=== PATIENT | female | born 1985 | race Caucasian/White ===

== ENCOUNTER 2020-02-13 11:58 | Inpatient (IN) ==
[2020-02-13] MEDS ORDERED: LACTATED RINGER'S 1,000 ML IV PRN (17:35)
[2020-02-13] MEDS ORDERED: OXYTOCIN 30 UNITS/500 ML BAG IV PRN ×3 (17:35→23:56)
[2020-02-13 17:58] LABS: Hematocrit (blood only) 37.4 % (37-47); Mean Corpuscular Hemoglobin 29.5 pg (25-34); Mean Corpuscular Volume 84.8 fL (80-100); Mean Platelet Volume 11.1 fL (7.4-10.4); Platelet Count 135 K/uL (130-400); RDW Coefficient of Variation 13.1 % (11.5-14.5); RDW Standard Deviation 40.1 fL (36.4-46.3); Red Blood Count 4.41 M/uL (4.2-5.4); White Blood Count 16.65 K/uL (4.8-10.8)
[2020-02-13] MEDS ORDERED: ePHEDrine sulfate 50 MG/ML AMP ONE (18:03)
[2020-02-13] MEDS ORDERED: BUPIVACAINE 0.25% 30 ML VIAL ONE (18:03)
[2020-02-13] MEDS ORDERED: fentaNYL citrate 100 MCG/2 ML VIAL ONE (18:04)
[2020-02-13] MEDS ORDERED: fentaNYL 2MCG/ML ROPIV 1.25MG/ML 100 ML BAG EPI ONE (18:05)
[2020-02-13 18:14] LABS: Mean Corpuscular Hgb Conc 34.8 g/dL (32-36)
--- NOTE | 2020-02-13 18:16 | History & Physical Report ---
Date of Service February 13, 2020 Assessment & Plan (1) : Patient epidural follow closely History of Present Illness Primary Care Provider: NO PCP Patient has presented with contractions and these were initially less than 5 minutes apart 1 hour 16 minutes her cervix was initially 1 cm but now has progressed to 5 cm thus we will admit her for labor patient requests epidural Allergies Allergy/AdvReac Type Severity Reaction Status Date / Time No Known Allergies Allergy Verified 02/07/20 12:19 Home Medications Home Medications Medication Instructions Recorded Confirmed Type prenat.vits,nely,krc-fjnk-rbgrq 1 tab PO DAILY 07/03/19 02/07/20 History valacyclovir 500 mg tablet 500 mg PO DAILY #30 tab 12/20/19 02/07/20 Rx docosahexaenoic acid PO 01/03/20 02/07/20 History cephalexin 250 mg capsule 250 mg PO QID #20 cap 01/22/20 02/07/20 Rx Patient History Social History marital status: Single marital status details: FOB: Bipin Estrada (37) [phone] Current Living Situation: Family Current Living Situation Comment: lives with FOB, 2 dogs current occupational status: employed current occupation: Health Program Manager[employer] Smoking Status: Never smoker Hx Alcohol Use: No Hx Substance Use: No Physical Exam Constitutional: WD/WN, vitals as above Respiratory: normal respiratory effort, lungs clear to auscultation Cardiovascular: RRR, no murmur, no edema Genitourinary: Manual OB Exam: + cervical dilation 5 cm, + cervical effacement 80% and + station 0 Results & Data ([facility]) Vital Signs (Past 12 Hours) Vital Signs Temp Pulse Resp BP 02/13/20 17:58 75 127/75 02/13/20 12:53 98.1 F 84 18 121/79 02/13/20 12:12 84 121/79 Coding Level of Care Code None Diagnoses Z34.90
--- NOTE | 2020-02-13 18:24 | Anesthesiology Consultation ---
Date of Service February 13, 2020 Assessment & Plan (1) Encounter for pre-operative examination: Chart Review Chart Review: Patient NOT seen in Pre Admission Testing and Acceptable Risk for Labor Epidural Consults Requested none ASA ASA2 Proposed Anesthesia Anesthesia Type: Labor Epidural Risk / Benefits Reviewed With: PT / POA / Parent / Guardian, Accepts Plan and Informed Consent Obtained History Height/Weight Height: 5 ft 3 in Weight: 59.874 kg Allergies Allergy/AdvReac Type Severity Reaction Status Date / Time No Known Allergies Allergy Verified 02/07/20 12:19 Medications Home Medications Medication Instructions Recorded Confirmed Last Taken prenat.vits,nely,xnf-vlxn-jflhg 1 tab PO DAILY 07/03/19 02/07/20 Unknown valacyclovir 500 mg tablet 500 mg PO DAILY #30 tab 12/20/19 02/07/20 Unknown docosahexaenoic acid PO 01/03/20 02/07/20 Unknown cephalexin 250 mg capsule 250 mg PO QID #20 cap 01/22/20 02/07/20 Unknown NPO Date Last Intake of Fluids: 02/13/20 Time Last Intake of Fluids: 18:22 Date Last Intake of Solids: 02/13/20 Time Last Intake of Solids: 11:00 Past Medical History Medical History Abnormal Pap smear of cervix Bladder infection Encounter for anatomic survey 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 Patient denies active use of anticoagulants other than low dose aspirin. Patient denies numbness, tingling or weakness in lower extremities. Physical Exam Vital Signs Last Vital Signs Temp 36.7 C 02/13/20 12:53 Pulse 75 02/13/20 17:58 Resp 18 02/13/20 12:53 BP 127/75 02/13/20 17:58 Constitutional not obese (Gravid) ENMT Mouth: no TMJ abnormality and oral opening not small Thyromental Distance: > or= 3.5 Finger Breadths Mallampati Class: I Neck normal visual inspection; neck extension not limited Respiratory normal respiratory effort Auscultation: lungs clear to auscultation bilaterally Cardiovascular Rate/Rhythm: regular rate and regular rhythm Heart Sounds: no murmur Neurologic moves all extremities Psychiatric Orientation: alert and oriented x 3 Testing Laboratory Results 02/13/20 17:44
[2020-02-13] MEDS ORDERED: fentaNYL 2MCG/ML ROPIV 1.25MG/ML 100 ML BAG EPI PRN (18:49)
[2020-02-13] MEDS ORDERED: NALOXONE HCL 1 MG in SODIUM CHLORIDE 0.9% 1000ML 1,000 ML IV PRN (18:49)
[2020-02-13] MEDS ORDERED: ePHEDrine sulfate 50 MG/ML AMP IV PRN (18:49)
[2020-02-13] MEDS ORDERED: NALOXONE HCL 0.4 MG/1 ML VIAL/CARP IV PRN (18:49)
[2020-02-13] MEDS ORDERED: DiphenhydrAMINE HCL 50 MG/ML VIAL IV PRN (18:49)
[2020-02-13] MEDS ORDERED: ONDANSETRON INJ 2 MG/ML 2 ML VIAL IV PRN (18:49)
--- NOTE | 2020-02-13 19:36 | Labor Progress Brief Note ---
Date of Service February 13, 2020 Patient now 7 cm has epidural artificial rupture of membranes for clear fluid contractions of space will consider Pitocin if they stay spaced estimated weight 7 pounds Assessment & Plan Admission and Anticipated Discharge Date Admission Date: February 13, 2020 Results & Data ([facility]) Vital Signs (Past 12 Hours) Vital Signs Temp Pulse Resp BP Pulse Ox 02/13/20 19:34 99 H 98 02/13/20 19:29 83 98 02/13/20 19:24 93 H 98 02/13/20 19:21 80 108/59 L 02/13/20 19:19 104 H 98 02/13/20 19:16 81 109/56 L 02/13/20 19:14 78 97 02/13/20 19:11 97 H 115/65 02/13/20 19:09 93 H 98 02/13/20 19:06 86 117/68 02/13/20 19:04 92 H 98 02/13/20 19:01 103 H 119/67 02/13/20 18:59 101 H 116/67 99 02/13/20 18:57 91 H 113/65 02/13/20 18:55 93 H 116/65 02/13/20 18:54 109 H 98 02/13/20 18:53 107 H 118/66 02/13/20 18:51 96 H 110/59 L 02/13/20 18:49 91 H 107/56 L 98 02/13/20 18:47 84 108/59 L 02/13/20 18:45 82 118/62 02/13/20 18:44 103 H 100 02/13/20 18:43 104 H 122/84 02/13/20 18:41 88 121/76 02/13/20 18:38 76 97 02/13/20 17:58 75 127/75 02/13/20 12:53 98.1 F 84 18 121/79 02/13/20 12:12 84 121/79 Coding Level of Care Code None
--- NOTE | 2020-02-13 23:24 | Delivery Summary ---
Vaginal Delivery Summary Date of Service February 13, 2020 Vaginal Delivery Summary Patient presented to labor and delivery with spontaneous labor received an epidural artificial rupture membranes with revealed clear fluid Pitocin was started due to contractions spacing she delivered by pushing over a small first- degree tear baby was in occiput anterior position mouth and then nares were suctioned there was no nuchal cord. Baby was delivered with gentle traction no excessive force used live vigorous infant cord clamped and cut cord gases obtained cord blood obtained small first-degree tear repaired with 3-0 Vicryl placenta was removed with gentle traction IV Pitocin started estimated blood loss 150 mL sponge and instrument counts correct
[2020-02-13] MEDS ORDERED: SUPERCREAM 0.870% 15 GM JAR EXT PRN (23:56)
[2020-02-13] MEDS ORDERED: ACETAMINOPHEN 325 MG TAB PO PRN (23:56)
[2020-02-13] MEDS ORDERED: OXYCODONE/ACETAMINOPHEN 5mg/325mg TAB PO PRN (23:56)
[2020-02-13] MEDS ORDERED: HYDROCORTISONE ACETATE 25 MG SUPP PR PRN (23:56)
[2020-02-13] MEDS ORDERED: DIPHTHERIA/TETANUS/PERTUSSIS 0.5 ML SYR/VIAL IM ONE (23:56)
[2020-02-13] MEDS ORDERED: bisacodyL 10 MG SUPP PR PRN (23:56)
[2020-02-13] MEDS ORDERED: BENZOCAINE 20% AER SPR 82.5 GM CAN EXT PRN (23:56)
[2020-02-14] MEDS: IBUPROFEN 600 MG TAB PO PRN ×3 (01:36→23:31)
--- NOTE | 2020-02-14 01:44 | Anesthesia Procedure Note ---
Date of Service February 14, 2020 Anesthesia Post Epidural Note Vital Signs Vital Signs: Temp Pulse Resp BP Pulse Ox 37.2 C 80 18 123/67 97 02/14/20 00:53 02/14/20 01:38 02/14/20 00:53 02/14/20 01:38 02/13/20 23:19 Pain Intensity Bilateral Abdomen: Pain Intensity: 1 Notes Mental Status: alert / awake / arousable and participated in evaluation Nausea / Vomiting: adequately controlled Pain: adequately controlled Airway Patency, RR, SpO2: stable & adequate BP & HR: stable & adequate Hydration State: stable & adequate Neuraxial Anesthesia: was administered and sensory block is resolving Anesthetic Complications: no major complications apparent and Pt Satisfied with anesthetic care Epidural: Removed without complications and With tip intact Notes: Epidural site clean, dry and intact. No signs of edema, erythema or bruising at insertion site. Pt instructed to request anesthesia if she has residual lower extremity numbness or if she develops lower extremity pain or weakness, back pain or headache.
[2020-02-14] MEDS ORDERED: BENZOCAINE 20% AER SPR 82.5 GM CAN EXT ONE (02:06)
[2020-02-14 06:03] LABS: Hematocrit (blood only) 32.7 % (37-47); Hemoglobin 11.1 g/dL (12.0-16.0); Mean Corpuscular Hemoglobin 29.1 pg (25-34); Mean Corpuscular Hgb Conc 33.9 g/dL (32-36); Mean Corpuscular Volume 85.8 fL (80-100); Mean Platelet Volume 11.6 fL (7.4-10.4); Platelet Count 151 K/uL (130-400); RDW Coefficient of Variation 13.3 % (11.5-14.5); RDW Standard Deviation 41.4 fL (36.4-46.3); Red Blood Count 3.81 M/uL (4.2-5.4)
--- NOTE | 2020-02-14 06:23 | Obstetrical Progress Note ---
Date of Service <Melvin Lazaro MD - Last Filed: 02/14/20 07:19> February 14, 2020 Assessment & Plan <Melvin Lazaro MD - Last Filed: 02/14/20 07:19> (1) : PPD#1 Doing well, voiding well, tolerating oral intake. Ambulate as tolerated. Continue routine care. After discharge will have follow-up in 6 weeks. Subjective <Melvin Lazaro MD - Last Filed: 02/14/20 07:19> Jamila is a 34 y/o female ; PPD #1 following spontaneous vaginal delivery at 38+ weeks; doing well this morning; light abdominal cramping& 3/10 pain well managed on analgesics; voiding well; tolerating meals overnight; some persistent spotting with improvement this morning. She has not yet been able to ambulate, as the epidural was just wearing off as of this morning. Review of Systems Constitutional: denies fever, chills, sweat, headache Respiratory: denies shortness of breath, difficulty breathing Cardiac: denies chest pain, palpitations, chest pressure Breast: denies breast pain : denies dysuria Physical Exam <Melvin Lazaro MD - Last Filed: 02/14/20 07:19> General: Alert, oriented. No acute distress. Cardiac: Regular rate and rhythm, no murmurs/rubs/gallops. Respiratory: Clear to auscultation bilaterally a/p, no wheezes/rales/rhonchi. No increased work of breathing. Symmetrical chest rise. No respiratory distress. Abdomen: Soft, nontender, nondistended. Bowel sounds present. Uterus: Uterine fundus firm, palpable 1cm below umbilicus. Lower Extremities: No lower extremity edema or swelling. No deep calf pain. Lit's negative bilaterally. Results & Data <Melvin Lazaro MD - Last Filed: 02/14/20 07:19> Vital Signs (Past 12 Hours) Vital Signs Temp Pulse Pulse Resp BP BP Pulse Ox 02/14/20 02:50 36.7 C 81 18 103/65 97 02/14/20 02:15 37.1 C 18 02/14/20 01:53 87 116/66 02/14/20 01:38 80 123/67 02/14/20 01:23 90 18 117/61 02/14/20 01:08 93 H 111/61 02/14/20 00:53 37.2 C 78 18 118/69 02/14/20 00:38 87 115/67 02/14/20 00:23 37.1 C 77 18 115/66 02/14/20 00:08 86 18 111/65 02/13/20 23:53 86 18 112/65 02/13/20 23:38 78 16 110/65 02/13/20 23:23 37.0 C 90 18 114/69 02/13/20 23:19 88 97 02/13/20 23:14 114 H 97 02/13/20 23:09 108 H 96 02/13/20 23:04 102 H 96 02/13/20 22:59 94 H 97 02/13/20 22:54 104 H 96 02/13/20 22:49 95 H 97 02/13/20 22:44 110 H 97 02/13/20 22:41 88 91 02/13/20 22:40 93 H 119/76 02/13/20 22:39 113 H 99 02/13/20 22:34 97 H 98 02/13/20 22:29 105 H 98 02/13/20 22:28 97 H 93 02/13/20 22:24 97 H 97 02/13/20 22:22 98 H 82 L 02/13/20 22:19 119 H 95 02/13/20 22:17 88 125/59 L 02/13/20 22:16 96 H 92 02/13/20 22:14 105 H 97 02/13/20 22:09 116 H 98 02/13/20 22:04 119 H 96 02/13/20 22:02 117 H 89 L 02/13/20 21:59 115 H 99 02/13/20 21:56 117 H 80 L 02/13/20 21:54 114 H 100 02/13/20 21:50 102 H 90 02/13/20 21:49 111 H 100 02/13/20 21:44 117 H 91 02/13/20 21:39 88 100 02/13/20 21:34 97 H 100 02/13/20 21:29 69 100 07/15/20 21:24 71 109/61 100 07/15/20 21:19 83 100 02/13/20 21:14 75 100 02/13/20 21:09 75 104/62 100 02/13/20 21:04 82 99 02/13/20 21:00 37.0 C 18 02/13/20 20:59 71 100 02/13/20 20:55 71 99/58 L 02/13/20 20:54 72 100 02/13/20 20:49 88 100 02/13/20 20:44 78 99 02/13/20 20:41 75 118/73 02/13/20 20:39 124 H 99 02/13/20 20:34 81 99 02/13/20 20:29 74 99 02/13/20 20:24 71 112/72 98 02/13/20 20:19 72 99 02/13/20 20:14 71 98 02/13/20 20:09 111 H 109/70 97 02/13/20 20:04 85 98 02/13/20 20:01 18 02/13/20 19:59 125 H 98 02/13/20 19:54 98 H 115/73 97 02/13/20 19:49 95 H 97 02/13/20 19:44 101 H 98 02/13/20 19:40 77 112/71 02/13/20 19:39 90 98 02/13/20 19:34 99 H 98 02/13/20 19:29 83 98 02/13/20 19:24 93 H 98 02/13/20 19:21 80 108/59 L 02/13/20 19:19 104 H 98 02/13/20 19:16 81 109/56 L 02/13/20 19:14 78 97 02/13/20 19:11 97 H 115/65 02/13/20 19:09 93 H 98 02/13/20 19:06 86 117/68 02/13/20 19:05 37.1 C 16 02/13/20 19:04 92 H 98 02/13/20 19:01 103 H 119/67 02/13/20 18:59 101 H 116/67 99 02/13/20 18:57 91 H 113/65 02/13/20 18:55 93 H 116/65 02/13/20 18:54 109 H 98 02/13/20 18:53 107 H 118/66 02/13/20 18:51 96 H 110/59 L 02/13/20 18:49 91 H 107/56 L 98 02/13/20 18:47 84 108/59 L 02/13/20 18:45 82 118/62 02/13/20 18:44 103 H 100 02/13/20 18:43 104 H 122/84 02/13/20 18:41 88 121/76 02/13/20 18:38 76 97 <Liam Troy MD, FACOG - Last Filed: 02/14/20 07:50> Co-Signing Physician Notes Resident Physician Supervision Note: I was present with Dr. Charles during the history and exam. I discussed the case with the resident and agree with the findings and plan as documented in the note. Any exceptions or clarifications are listed here: [None] Documented By: Liam Troy MD, FACOG Resident Activity Tracking <Melvin Lazaro MD - Last Filed: 02/14/20 07:19> Resident Involvement: Resident Care Provided Care Provided: OB Delivery
[2020-02-14] MEDS: PRENATAL VITAMIN 1 TAB PO SCH (08:34)
[2020-02-14] MEDS: DOCUSATE SODIUM 100 MG CAP PO SCH ×2 (08:34→19:27)
[2020-02-14] MEDS ORDERED: bisacodyL 5 MG TABEC PO SCH (20:00)
[2020-02-15] MEDS: IBUPROFEN 600 MG TAB PO PRN ×2 (05:22→10:12)
[2020-02-15 06:04] LABS: Hematocrit (blood only) 33.4 % (37-47); Hemoglobin 10.9 g/dL (12.0-16.0)
--- NOTE | 2020-02-15 06:29 | Obstetrical Progress Note ---
Date of Service <Melvin Lazaro MD - Last Filed: 02/15/20 06:29> February 15, 2020 Assessment & Plan <Melvin Lazaro MD - Last Filed: 02/15/20 06:29> (1) : PPD#2 Doing well, voiding well, tolerating oral intake. Ambulate as tolerated. Continue routine care. After discharge will have follow-up in 6 weeks. Subjective <Melvin Lazaro MD - Last Filed: 02/15/20 06:29> Jamila is a 34 y/o female ; PPD #2 following spontaneous vaginal delivery at 38+ weeks; doing well this morning; light abdominal cramping & 2/10 pain well managed on analgesics; voiding well; tolerating meals overnight and able to ambulate some; some persistent spotting with some improvement this morning. Review of Systems Constitutional: denies fever, chills, sweat, headache Respiratory: denies shortness of breath, difficulty breathing Cardiac: denies chest pain, palpitations, chest pressure Breast: denies breast pain : denies dysuria Physical Exam <Melvin Lazaro MD - Last Filed: 02/15/20 06:29> General: Alert, oriented. No acute distress. Cardiac: Regular rate and rhythm, no murmurs/rubs/gallops. Respiratory: Clear to auscultation bilaterally a/p, no wheezes/rales/rhonchi. No increased work of breathing. Symmetrical chest rise. No respiratory distress. Abdomen: Soft, nontender, nondistended. Bowel sounds present. Uterus: Uterine fundus firm, palpable 2cm below umbilicus. Lower Extremities: No lower extremity edema or swelling. No deep calf pain. Lit's negative bilaterally. Results & Data <Melvin Lazaro MD - Last Filed: 02/15/20 06:29> Vital Signs (Past 12 Hours) Vital Signs Temp Pulse Resp BP Pulse Ox 02/14/20 23:25 36.9 C 80 18 108/70 02/14/20 19:25 36.9 C 94 H 18 109/73 97 <Soledad Evans MD, FACOG - Last Filed: 02/15/20 09:35> Co-Signing Physician Notes Resident Physician Supervision Note: I interviewed and examined the patient. Discussed with Dr. Miller and agree with findings and plan as documented in the note. Any exceptions or clarifications are listed here: [None] Documented By: Soledad Evans MD, FACOG Resident Activity Tracking <Melvin Lazaro MD - Last Filed: 02/15/20 06:29> Resident Involvement: Resident Care Provided Care Provided: OB Delivery
[2020-02-15] MEDS: DOCUSATE SODIUM 100 MG CAP PO SCH (08:22)
[2020-02-15] MEDS: PRENATAL VITAMIN 1 TAB PO SCH (08:22)
== END 2020-02-15 11:24 | disposition home or self-care (01) | DRG 807 ==
LOC: OPB 11:58 → 4S1 12:00 → 4S2 02-14 02:20

== ENCOUNTER 2022-02-12 22:50 | Inpatient (IN) ==
[2022-02-12] MEDS ORDERED: OXYTOCIN 30 UNITS/500 ML BAG IV PRN (22:57)
[2022-02-12] MEDS ORDERED: ePHEDrine sulfate 50 MG/ML AMP ONE (23:13)
[2022-02-12] MEDS ORDERED: LIDOCAINE 2%/EPINEPHRINE 1:200,000 20 ML SDV ONE (23:14)
[2022-02-12] MEDS ORDERED: fentaNYL 2MCG/ML ROPIVACAINE 1.25MG/ML 100 ML BAG EPI ONE (23:14)
[2022-02-12] MEDS ORDERED: BUPIVACAINE 0.25% 30 ML VIAL ONE (23:14)
[2022-02-12] MEDS ORDERED: fentaNYL citrate 100 MCG/2 ML VIAL ONE (23:14)
[2022-02-12] MEDS ORDERED: SODIUM CHLORIDE 0.9% INJ 10 ML VIAL ONE (23:14)
[2022-02-12] MEDS: LACTATED RINGER'S 1,000 ML IV PRN (23:15)
[2022-02-12] MEDS ORDERED: diphenhydrAMINE 50 MG/ML VIAL IV PRN (23:43)
[2022-02-12] MEDS ORDERED: ONDANSETRON INJ 2 MG/ML 2 ML VIAL IV PRN (23:43)
[2022-02-12] MEDS ORDERED: NALOXONE HCL 0.4 MG/1 ML VIAL/CARP IV PRN (23:43)
[2022-02-12] MEDS ORDERED: ePHEDrine sulfate 50 MG/ML AMP IV PRN (23:43)
[2022-02-12] MEDS ORDERED: NALOXONE HCL 1 MG in SODIUM CHLORIDE 0.9% 1000ML 1,000 ML IV PRN (23:43)
[2022-02-12] MEDS ORDERED: fentaNYL 2MCG/ML ROPIVACAINE 1.25MG/ML 100 ML BAG EPI PRN (23:43)
[2022-02-12] MEDS ORDERED: NALBUPHINE HCL INJ 10 MG/ML AMP IV PRN (23:43)
--- NOTE | 2022-02-12 23:47 | Anesthesiology Consultation ---
Date of Service February 12, 2022 Assessment & Plan Chart Review Chart Review: Patient NOT seen in Pre Admission Testing and Acceptable Risk for Labor Epidural Consults Requested none ASA ASA2 Proposed Anesthesia Anesthesia Type: Labor Epidural and CSE Risk / Benefits Reviewed With: PT / POA / Parent / Guardian, Accepts Plan and Informed Consent Obtained History Height/Weight Height: 5 ft 3 in Weight: 58.967 kg Allergies Allergy/AdvReac Type Severity Reaction Status Date / Time No Known Allergies Allergy Verified 02/09/22 09:16 Medications Home Medications Medication Instructions Recorded Confirmed Last Taken acetone (urine) test (Ketone Urine #50 ea 09/25/21 02/09/22 Unknown Test) blood sugar diagnostic (OneTouch #150 ea 09/25/21 02/09/22 Unknown Verio test strips) blood-glucose meter (OneTouch #1 ea 09/25/21 02/09/22 Unknown Verio Flex meter) lancets 33 gauge (OneTouch Delica #150 ea 09/25/21 02/09/22 Unknown Plus Lancet) valacyclovir 500 mg tablet 500 mg PO DAILY #30 tabs 02/03/22 02/12/22 02/12/22 07:00 vit no.95-ferrous 1 tab PO DAILY 02/12/22 02/12/22 02/12/22 fumarate 28 mg-folic acid 800 mcg tablet () NPO Date Last Intake of Fluids: 02/12/22 Time Last Intake of Fluids: 22:00 Date Last Intake of Solids: 02/12/22 Time Last Intake of Solids: 12:00 Past Medical History Medical History Bladder infection 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 Exercise / Class Metabolic Activity II 4-5 Yardwork/Stairs/Walk up hill Past Family History Family History Father Diabetes Mother Multiple kidney stones Denies family history of Ovarian cancer Breast cancer Colorectal cancer Past Surgical History Surgical History [place] teeth removed Past Anesthesia History No Hx of Anesthesia Complications and No Family Hx of Anesthesia Complications History of PONV No Hx of PONV and No Hx of Motion Sickness Social History Smoking Status: Never smoker Hx Alcohol Use: No Hx Substance Use: No substance use type: does not use Review of Systems no chest pain or sob Physical Exam Vital Signs Last Vital Signs Temp 37.0 C 02/12/22 23:03 Pulse 83 02/12/22 23:43 Resp 18 02/12/22 23:03 BP 110/68 02/12/22 22:59 Pulse Ox 97 02/12/22 23:43 ENMT Mouth: no TMJ abnormality Thyromental Distance: > or= 3.5 Finger Breadths Mallampati Class: II Neck normal visual inspection Respiratory normal respiratory effort Auscultation: lungs clear to auscultation bilaterally Cardiovascular Rate/Rhythm: regular rate and regular rhythm Musculoskeletal Spine: normal cervical ROM Neurologic moves all extremities Psychiatric Orientation: alert and oriented x 3 Testing Laboratory Results 02/12/22 23:24 POC Glucose 108 H
[2022-02-13 00:09] LABS: Hematocrit (blood only) 37.3 % (34.1-44.9); Hemoglobin 12.8 g/dl (12.0-16.0); Mean Corpuscular Hemoglobin 29.2 pg (25.0-34.0); Mean Corpuscular Hgb Conc 34.3 g/dL (32.0-36.0); Mean Platelet Volume 11.7 fL (9.4-12.3); Platelet Count 130 K/uL (130-400); RDW Coefficient of Variation 12.8 % (11.5-14.5); RDW Standard Deviation 39.1 fL (36.4-46.3); Red Blood Count 4.39 M/uL (3.93-5.22)
[2022-02-13 00:10] LABS: Platelet Estimate Normal (Normal)
[2022-02-13] MEDS: LACTATED RINGER'S 1,000 ML IV PRN (00:35)
[2022-02-13] MEDS ORDERED: ACETAMINOPHEN 325 MG TAB PO PRN (01:27)
[2022-02-13] MEDS ORDERED: OXYTOCIN 30 UNITS/500 ML BAG IV PRN (01:27)
[2022-02-13] MEDS ORDERED: BENZOCAINE 20% AER SPR 82.5 GM CAN EXT PRN (01:27)
[2022-02-13] MEDS ORDERED: oxyCODONE/ACETAMINOPHEN 5mg/325mg TAB PO PRN (01:27)
[2022-02-13] MEDS ORDERED: HYDROCORTISONE ACETATE 25 MG SUPP PR PRN (01:27)
[2022-02-13] MEDS ORDERED: DIPHTHERIA/TETANUS/PERTUSSIS 0.5 ML SYR/VIAL IM ONE (01:27)
--- NOTE | 2022-02-13 01:31 | Delivery Summary ---
Vaginal Delivery Summary Date of Service February 13, 2022 Vaginal Delivery Summary and 1st Degree LAC Patient is a 36-year-old 2 para 1-0-0-1 female EDC of [birth year]/2022 presented in active labor. She requested epidural analgesia which was effective when she was 8 cm dilated. Membranes were ruptured for small amount of clear fluid. She progressed to full dilation and pushed effectively over intact perineum for delivery of a viable female infant in direct OP presentation. The rest of the delivered easily and she was placed on the mother's abdomen for further attention and drying. She was vigorous and moving all 4 limbs. Cord was clamped shortly after because of a short umbilical cord length. After cord blood was obtained the placenta was expressed intact with a three-vessel cord. bleeding was controlled with dilute Pitocin. A small first-d egree laceration at the vagina was bleeding and therefore repaired with a [id number] stitch of 3-0 chromic. Estimated blood loss was 300 cc. Mother and infant were doing well after delivery. [facility] [place] Vaginal Delivery Charge Delivery Type Details: and 1st Degree LAC
--- NOTE | 2022-02-13 08:43 | Obstetrical Progress Note ---
Date of Service February 13, 2022 Assessment & Plan (1) Encounter for care and examination after delivery: satisfactory progress continue current care plan Subjective Ambulation: ambulating normally Voiding: no voiding problems Passing Gas:: Yes Diet Tolerance:: regular diet Lochia:: Small Feeding Type:: breast feeding Review of Systems All systems reviewed & are unremarkable except as noted in HPI & below Physical Exam Constitutional WD/WN, vitals as above Psychiatric A+Ox3, euthymic affect Genitourinary OB Exam Abdomen: + fundal height Fundus: + firm and + relation to umbilicus (at U) Results & Data ([facility]) Vital Signs (Past 12 Hours) Vital Signs Temp Pulse Pulse Resp BP BP Pulse Ox 02/13/22 04:22 98.1 F 66 18 99/68 L 02/13/22 03:18 97.7 F 18 02/13/22 02:18 18 02/13/22 02:05 18 02/13/22 01:49 18 02/13/22 01:33 16 02/13/22 01:19 98.2 F 18 02/13/22 03:18 86 92/50 L 02/13/22 03:03 86 94/50 L 02/13/22 02:48 78 103/58 L 02/13/22 02:33 85 101/61 02/13/22 02:18 102 H 108/59 L 02/13/22 00:15 18 02/13/22 00:15 18 02/13/22 00:30 02/13/22 00:30 02/13/22 00:45 18 02/13/22 00:45 99.0 F 18 02/13/22 02:08 101 H 103/55 L 02/13/22 01:49 117 H 90/52 L 02/13/22 01:33 110 H 115/55 L 02/13/22 01:19 108 H 110/54 L 02/13/22 01:08 109 H 96 02/13/22 01:06 115 H 87 L 02/13/22 01:03 98 H 97 02/13/22 00:10 18 02/13/22 00:10 18 02/13/22 00:58 123 H 95 02/13/22 00:00 02/13/22 00:00 02/13/22 00:53 110 H 99 02/13/22 00:50 100 H 90 02/13/22 00:48 108 H 78 L 02/13/22 00:46 117 H 102/59 L 02/13/22 00:44 108 H 89 L 02/13/22 00:43 111 H 99 02/13/22 00:38 95 02/13/22 00:38 114 H 02/13/22 00:38 113 H 86 L 02/13/22 00:33 115 H 97 02/13/22 00:31 117 H 106/59 L 02/13/22 00:30 111 H 92 02/13/22 00:28 100 H 98 02/13/22 00:24 100 H 94 02/13/22 00:23 102 H 96 02/13/22 00:18 87 88 L 02/13/22 00:15 86 104/54 L 02/13/22 00:13 92 H 124/80 100 02/13/22 00:11 95 H 131/98 90 02/13/22 00:08 87 100 02/13/22 00:05 86 20 90 02/13/22 00:03 89 99 02/12/22 23:58 90 96 02/12/22 23:59 86 116/84 02/12/22 23:56 80 117/73 02/12/22 23:53 112 H 98 02/12/22 23:48 98 H 98 02/12/22 23:43 83 97 02/12/22 23:38 95 H 99 02/12/22 23:21 89 100 02/12/22 22:59 90 110/68 02/12/22 23:03 98.6 F 18
[2022-02-13] MEDS: DOCUSATE SODIUM 100 MG CAP PO SCH ×2 (08:58→21:02)
[2022-02-13] MEDS: PRENATAL VITAMIN 1 TAB PO SCH (08:58)
[2022-02-13] MEDS: IBUPROFEN 600 MG TAB PO PRN ×2 (16:59→22:30)
--- NOTE | 2022-02-13 18:44 | Anesthesia Procedure Note ---
Date of Service February 13, 2022 Anesthesia Post Epidural Note Vital Signs Vital Signs: Temp Pulse Resp BP Pulse Ox O2 Del Method 36.7 C 87 18 103/74 98 02/13/22 16:45 02/13/22 16:45 02/13/22 16:45 02/13/22 16:45 02/13/22 16:45 02/13/22 16:45 Pain Intensity Abdomen: Pain Intensity: 10 Notes Mental Status: alert / awake / arousable Nausea / Vomiting: adequately controlled Pain: adequately controlled Airway Patency, RR, SpO2: stable & adequate BP & HR: stable & adequate Hydration State: stable & adequate Neuraxial Anesthesia: was administered and sensory block is resolving Anesthetic Complications: no major complications apparent and Pt Satisfied with anesthetic care Epidural: Removed without complications and With tip intact
[2022-02-14 08:44] LABS: Hematocrit (blood only) 37.1 % (34.1-44.9); Hemoglobin 12.3 g/dl (12.0-16.0); Mean Corpuscular Hemoglobin 29.8 pg (25.0-34.0); Mean Corpuscular Hgb Conc 33.2 g/dL (32.0-36.0); Mean Corpuscular Volume 89.8 fL (80.0-100.0); Mean Platelet Volume 11.5 fL (9.4-12.3); Platelet Count 141 K/uL (130-400); RDW Coefficient of Variation 13.3 % (11.5-14.5); RDW Standard Deviation 43.7 fL (36.4-46.3); Red Blood Count 4.13 M/uL (3.93-5.22); White Blood Count 13.25 K/ul (4.8-10.8)
--- NOTE | 2022-02-14 09:29 | Obstetrical Progress Note ---
Date of Service February 14, 2022 Assessment & Plan (1) Vaginal delivery: Plan Doing well. PLan d/c. Instructions reviewed. Day #:: 2 Subjective Ambulation: ambulating normally Voiding: no voiding problems Passing Gas:: Yes Diet Tolerance:: regular diet Lochia:: Small Feeding Type:: breast feeding There is a concern that the baby may have Down's syndrome. There are some facial features of concern. Echo showed a larger vsd. However, baby feeding well and tone is good. They are dealing with this potential outcome well. Awaiting chromosomal analysis. Physical Exam Constitutional WD/WN, vitals as above Respiratory normal respiratory effort, lungs clear to auscultation Cardiovascular RRR, no murmur, no edema Extremities: no calf tenderness and no edema Gastrointestinal (Abdomen) soft, nt, nd, ff/nt at u Results & Data ([facility]) Vital Signs (Past 12 Hours) Vital Signs Temp Pulse Resp BP Pulse Ox O2 Del Method 02/13/22 22:52 36.7 C 80 16 99/66 L 100 Room Air
[2022-02-14] MEDS: PRENATAL VITAMIN 1 TAB PO SCH (09:52)
[2022-02-14] MEDS: DOCUSATE SODIUM 100 MG CAP PO SCH (09:52)
[2022-02-14] MEDS ORDERED: bisacodyL 5 MG TABEC PO SCH (20:00)
[2022-02-15] MEDS ORDERED: bisacodyL 10 MG SUPP PR PRN
== END 2022-02-14 12:45 | disposition home or self-care (01) | DRG 807 ==
LOC: OPB 22:50 → 4S1 22:52 → 4E2 02-13 04:11